=== PATIENT | female | born 1960 | race Caucasian/White ===

== ENCOUNTER 2020-10-15 14:41 | Outpatient (CLI) | payer BC, SELFPAY ==
--- NOTE | 2020-10-15 14:44 | MM_ITS ---
WS: [id number] BILATERAL SCREENING DIGITAL MAMMOGRAM WITH CAD HISTORY: SCREENING COMPARISON: 12/18/2018 and 11/14/2017 Bilateral CC and MLO views submitted. Computer aided detection analyzed. Breast composition: There are scattered areas of fibroglandular density. Asymmetry in the upper outer quadrant of the RIGHT breast is more nodular than on prior studies. Recommend further evaluation. Ot herwise benign calcifications in the LEFT breast. MM/[id number] IMPRESSION: BI-RADS: 0-Incomplete: Need additional imaging evaluation FOLLOW UP: Need Additional Imaging RIGHT breast: Spot compression views (CC and MLO). True ML. Ultrasound to follo w if abnormality persists.
== END 2020-10-15 14:42 | disposition home or self-care (01) ==
LOC: RADSHAW 14:43
PROVIDERS: PCP Family Medicine; Visit Provider Family Medicine
DX: Z12.31 Encounter for screening mammogram for malignant neoplasm of breast (principal); N64.89 Other specified disorders of breast
CPT/HCPCS: 77067

== ENCOUNTER 2020-11-20 14:07 | Outpatient (CLI) | payer BC, SELFPAY ==
--- NOTE | 2020-11-20 14:12 | US_ITS ---
WS: [id number] ADDITIONAL VIEWS RIGHT BREAST RIGHT breast ultrasound, limited HISTORY: ABNORMAL MAMMO COMPARISON: 10/15/2020 and 12/18/2018 Compression views right CC and MLO projection. True ML also submitted. Partially obscured asymmetry measuring 7 mm persists at the 10:00 axis of the RIGHT breast posteriorl y. No distortion. Ultrasound to follow. This area has become more similar to the study from 2015 but this needs to be further evaluated for stability. RIGHT breast ultrasound, limited. At 10:00 there is dense fibroglandular tissue but no mass identified. At 9:00 posterior there is a s imple cyst measuring 7 x 4 x 4 mm. US/US breast RT limited* [id number] IMPRESSION: BI-RADS: 2-Benign FOLLOW-UP: 1 Year Follow-up
== END 2020-11-20 14:08 | disposition home or self-care (01) ==
LOC: RADSHAW 14:08
PROVIDERS: PCP Family Medicine; Visit Provider Family Medicine
DX: R92.8 Other abnormal and inconclusive findings on diagnostic imaging of breast (principal); N64.89 Other specified disorders of breast
CPT/HCPCS: 76642; 77065

== ENCOUNTER 2022-01-21 12:34 | Outpatient (CLI) | payer BC, SELFPAY ==
--- NOTE | 2022-01-21 13:18 | MM_ITS ---
WS: [id number] BILATERAL 3D TOMOSYNTHESIS DIGITAL SCREENING MAMMOGRAPHY WITH CAD CLINICAL INFORMATION: SCREENING HISTORY: Screening mammogram. No current complaints. COMPARISON: October 15, 2020 TECHNIQUE: Bilateral CC and MLO views. FINDINGS: The breasts are composed of heterogeneous fibroglandular density tissue, which can limit the detectio n of small underlying mass lesions. A few incidental punctate calcifications. Vascular calcifications . Asymmetric density upper outer RIGHT breast along the chest wall unchanged from 2018 and previously evaluated. No suspicious mass, asymmetry, calcifications, or architectural distortion. No evidence o f malignancy. MM/[place] [id number] IMPRESSION: BI-RADS: 2-Benign FOLLOW UP: 1 Year Follow-up Recommend return to annual screening mammography.
== END 2022-01-21 12:35 | disposition home or self-care (01) ==
PROVIDERS: PCP Family Medicine; Visit Provider Family Medicine
DX: Z12.31 Encounter for screening mammogram for malignant neoplasm of breast (principal)
CPT/HCPCS: 77063; 77067

== ENCOUNTER → 2022-04-12 11:56 | Outpatient (BNVA) | payer OTHER, SELFPAY | PROVIDERS: PCP Family Medicine; Visit Provider Emergency Medicine | DX: S49.92XA Unspecified injury of left shoulder and upper arm, initial encounter (principal); X58.XXXA Exposure to other specified factors, initial encounter | CPT/HCPCS: 73030 ==

== ENCOUNTER 2022-07-01 15:25 | Outpatient (CLI) | payer OTHER, SELFPAY ==
--- NOTE | 2022-07-01 15:15 | MR_ITS ---
WS: [id number] MRI LEFT SHOULDER HISTORY: Fell 2 months ago. Limited range of motion. COMPARISON: 04/12/2022 TECHNIQUE: Multiplanar sequences of the shoulder joint are submitted. Mild AC joint arthritis. Soft tissue and bone hypertrophy at the AC joint with a small amount of incr eased signal along the AC ligament. No subacromial or subdeltoid bursal fluid. No significant subacro mial impingement. No os acromion. Biceps tendon is small caliber and situated in the bicipital groove . Moderate glenohumeral joint narrowing. Loss of cartilage involving the humeral head and the glenoid. Osteophytic ridging around the medial glenoid. There is a larger osteophyte along the medial inferior glenoid with a small amount of fluid. Small subchondral cystic changes. Fraying along the surfaces of the distal supraspinatus tendon. There is increased signal in the dista l supraspinatus tendon. No full-thickness tear. Very tiny tear along the inferior surface of the tend on may be present. There is no tendon retraction. No muscle atrophy or edema. Abnormal appearance of the anterior inferior labrum. There is increased T2 signal with loss of the normal contour of the lab rum and adjacent cyst in the glenoid. Mild thickening involving the axillary pouch secondary to adjac ent osteophyte. MR/MR shoulder LT wo con* [id number] IMPRESSION: 1. Mild AC joint arthritis. 2. Osteophytic ridging involving the humeral head. Moderate size osteophyte al thomas the medial inferior humeral head with adjacent reactive fluid. Moderate gle nohumeral joint arthropathy with narrowing and loss of cartilage. 3. Subchondral cystic changes with mild remodeling of the humeral head from os teoarthritis. 4. Abnormal anterior superior labrum. Suspect labral tear with adjacent glenoi d subchondral cysts. 5. No definite tendon tear is identified. Intrasubstance degeneration and fray ing involving the distal supraspinatus tendon.
== END 2022-07-01 15:26 | disposition home or self-care (01) ==
LOC: RAD 15:26
PROVIDERS: PCP Family Medicine; Visit Provider Family Medicine
DX: S46.212A Strain of muscle, fascia and tendon of other parts of biceps, left arm, initial encounter (principal); W19.XXXA Unspecified fall, initial encounter; M13.812 Other specified arthritis, left shoulder; M25.712 Osteophyte, left shoulder
CPT/HCPCS: 73221

== ENCOUNTER → 2023-05-12 10:13 | Outpatient (BNVA) | payer BC, SELFPAY | PROVIDERS: PCP Family Medicine; Referring Provider Dermatology; Visit Provider Student in an Organized Health Care Education/Training Program | DX: S63.651A Sprain of metacarpophalangeal joint of left index finger, initial encounter; X58.XXXA Exposure to other specified factors, initial encounter; Y93.11 Activity, swimming | CPT/HCPCS: 73120 ==

== ENCOUNTER 2023-08-17 09:57 | Outpatient (CLI) | payer BC, SELFPAY ==
--- NOTE | 2023-08-17 10:02 | MM_ITS ---
WS: [id number] BILATERAL SCREENING DIGITAL TOMOSYNTHESIS MAMMOGRAM WITH CAD HISTORY: SCREENING COMPARISON: 03/31/2015, 01/21/2022, 10/15/2020 Bilateral CC and MLO views with tomosynthesis and synthetic mammography submitted. Computer aided det ection analyzed. Breast composition: There are scattered areas of fibroglandular density. No suspicious masses, microc alcifications or architectural distortion. Long-term stability of an asymmetry in the upper outer tyree drant of the RIGHT breast. IMPRESSION: MM/[place] [id number] BI-RADS: 2-Benign FOLLOW UP: 1 Year Follow-up
== END 2023-08-17 09:58 | disposition home or self-care (01) ==
LOC: RAD 09:57
PROVIDERS: PCP Family Medicine; Visit Provider Family Medicine
DX: Z12.31 Encounter for screening mammogram for malignant neoplasm of breast (principal)
CPT/HCPCS: 77063; 77067